=== PATIENT | female | born 1950 | race Caucasian/White ===

== ENCOUNTER → 2016-08-19 | Outpatient (CLI) | payer OTHER ==
[2015-02-22 15:07] VITALS: BP 128/80
--- NOTE | 2016-08-19 11:11 | MG ---
HISTORY: SCREENING Comparison: September 26, 2015 FINDINGS: Bilateral CC and MLO projections of the right and left breast were obtained. Scattered fibroglandul ar tissue is seen to be present. No significant architectural distortion, mass or clustered microca lcifications can be observed to suggest malignancy. No skin thickening or nipple retraction is appr eciated. No pathological lymphadenopathy can be identified. Benign-appearing calcifications scatte red throughout the right and left breasts are observed. IMPRESSION: NO RADIOGRAPHIC EVIDENCE OF MALIGNANCY. ACR CATEGORY: 2 - benign findings. FOLLOW-UP EXAM 1 YEAR. Diagnostic CAD was utilized and reviewed. * 0 (ZERO) - ASSESSMENT INCOMPLETE; ADDITIONAL IMAGING IS NEEDED. * 1/ (ONE) - NEGATIVE. * 2/II (TWO) - BENIGN FINDINGS. * 3/III (THREE) - PROBABLY BENIGN FINDING; SHORT INTERVAL FOLLOW-UP SUGGESTED. * 4/IV (FOUR) - SUSPICIOUS ABNORMALITY; BIOPSY SHOULD BE CONSIDERED. * 5/V - HIGHLY SUSPICIOUS OF MALIGNANCY; BIOPSY SHOULD BE PERFORMED. A NEGATIVE X-RAY REPORT SHOULD NOT DELAY BIOPSY IF A DOMINANT OR CLINICALLY SUSPICIOUS MASS IS PRESENT; 4 TO 8 PERCENT OF CANCERS ARE NOT IDENTIFIED BY X-RAY. A NEG ATIVE REPORT MAY REINFORCE THE CLINICAL IMPRESSION. ADENOSIS AND DENSE BREASTS MAY OBSCURE AN UNDER LYING NEOPLASM. Reported By:
== END ==
LOC: RAD 09:02
PROVIDERS: ATTEND Nurse Practitioner Family
DX: Z12.31 Encounter for screening mammogram for malignant neoplasm of breast (principal)
CPT/HCPCS: 77067

== ENCOUNTER → 2016-10-03 | Outpatient (CLI) | payer OTHER ==
[2015-02-22 15:07] VITALS: BP 128/80
[2016-10-03 11:32] LABS: ALBUMIN 4.2 g/dL (3.4-5.0); BILIRUBIN,DIRECT 0.09 mg/dL (0-0.2); CHOL/HDL RATIO 2.6 (0.0-5.0); TOTAL PROTEIN 7.5 g/dL (6.4-8.2)
== END ==
LOC: LAB 10:54
PROVIDERS: ATTEND Internal Medicine Cardiovascular Disease
DX: E78.4 Other hyperlipidemia (principal)
CPT/HCPCS: 36415; 80061; 80076

== ENCOUNTER → 2017-05-06 | Outpatient (CLI) | payer OTHER ==
[2015-02-22 15:07] VITALS: BP 128/80
== END ==
LOC: RAD 14:08
PROVIDERS: ATTEND Internal Medicine Cardiovascular Disease
DX: R06.09 Other forms of dyspnea (principal)
CPT/HCPCS: 93306

== ENCOUNTER 2017-06-03 08:37 | Day surgery (SDC) | payer OTHER ==
[2017-06-03] MEDS ORDERED: D5 LR 1000 ML 1,000 ML IV ONE (08:51)
[2017-06-03] MEDS ORDERED: DIPRIVAN VIAL 20 ML ONE (10:03)
[2017-06-03 11:03] VITALS: BP 122/67
== END 2017-06-03 10:43 | disposition home or self-care (01) ==
LOC: SURG1 08:37
PROVIDERS: ATTEND Internal Medicine Gastroenterology
PROC: 0DB68ZX Excision of Stomach, Via Natural or Artificial Opening Endoscopic, Diagnostic (ICD-10-PCS; principal; 2017-06-03 11:15)
PROC: 0DJ08ZZ Inspection of Upper Intestinal Tract, Via Natural or Artificial Opening Endoscopic (ICD-10-PCS; principal; 2017-06-03 11:15)
PROC: 0DB38ZX Excision of Lower Esophagus, Via Natural or Artificial Opening Endoscopic, Diagnostic (ICD-10-PCS; principal; 2017-06-03 11:15)
DX: K22.70 Barrett's esophagus without dysplasia (principal); K21.9 Gastro-esophageal reflux disease without esophagitis; R13.19 Other dysphagia; K44.9 Diaphragmatic hernia without obstruction or gangrene; K29.60 Other gastritis without bleeding
CPT/HCPCS: A4217; J3490; J7120

== ENCOUNTER 2017-06-17 07:29 | Day surgery (SDC) | payer OTHER ==
[2017-06-17] MEDS ORDERED: D5 LR 1000 ML 1,000 ML IV ONE (07:38)
[2017-06-17 10:10] VITALS: BP 110/65
[2017-06-17] MEDS ORDERED: DIPRIVAN VIAL ONE (10:45)
== END 2017-06-17 09:35 | disposition home or self-care (01) ==
LOC: SURG1 07:29
PROVIDERS: ATTEND Internal Medicine Gastroenterology
PROC: 0DJD8ZZ Inspection of Lower Intestinal Tract, Via Natural or Artificial Opening Endoscopic (ICD-10-PCS; principal; 2017-06-17 07:30)
DX: R10.31 Right lower quadrant pain (principal); R10.32 Left lower quadrant pain; K92.1 Melena; K64.0 First degree hemorrhoids; R19.4 Change in bowel habit
CPT/HCPCS: A4217; J3490; J7120